=== PATIENT | male | born 1945 | race Caucasian/White ===

== ENCOUNTER → 2016-08-30 | Outpatient (CLI) | payer MEDICARE, BC ==
--- NOTE | 2016-08-30 14:17 | CT ---
EXAMINATION TYPE: CT chest wo con DATE OF EXAM: 08/30/2016 1:48 PM COMPARISON: Chest x-ray 24 August 2016 HISTORY: Shortness of breath CT DLP: 203 mGycm Automated exposure control for dose reduction was used. Axial imaging obtained with high-resolution algorithm the chest in supine and prone positions. FINDINGS: Ascending aorta is dilated at 4.7 cm. There are coronary artery calcifications. No pleural or pericar dial effusion. Calcified left hilar nodes are present, no mediastinal, axillary, or hilar adenopathy. There is some motion on the exam. Calcified nodule present at the left lower lobe, small calcified p leural plaque is present also in the posterior left lower chest. No evident bronchiectasis or airspac e disease, no endobronchial lesion. No significant interlobular septal pleural thickening, emphysemat ous change. Adrenal glands are normal. Calcifications are present within the spleen. Lack of contrast could compromise sensitivity. IMPRESSION: OLD GRANULOMATOUS DISEASE. ASCENDING AORTIC ANEURYSM. CORONARY ARTERY DISEASE. THERE IS MOTION ON THE EXAM.
== END | disposition home or self-care (01) ==
LOC: RADCTMAIN 13:19
PROVIDERS: ATTEND Internal Medicine
DX: I71.2 Thoracic aortic aneurysm, without rupture (principal); I25.10 Atherosclerotic heart disease of native coronary artery without angina pectoris
CPT/HCPCS: 71250